=== PATIENT | female | born 1990 | race Caucasian/White ===

== ENCOUNTER 2016-06-26 19:45 | Emergency (ER) | payer BC ==
[~2016-06-26] VITALS: Ht 165.1 cm; Wt 60.7 kg
[2016-06-26 19:46] VITALS: TEMP 36.8; Ht 165.1 cm; Wt 60.7 kg
[2016-06-26] MEDS ORDERED: RABIES IMMUNE GLOBULIN (HUMAN) 150 INTER.UNIT/ML 2 ML VIAL IM. ONE (20:15)
[2016-06-26] MEDS ORDERED: RABIES VACCINE (IMOVAX) HUMAN DIPL CELL 2.5 INTER.UNIT/ML SYR IM. ONE (20:15)
[2016-06-26] MEDS ORDERED: BCPILLS PO (20:22)
--- NOTE | 2016-06-26 20:38 | EMERGENCY ROOM VISIT NOTE ---
History First contact with patient: 19:52 Chief Complaint: RABIES VACCINE Stated Complaint: RABIES SHOT? History of Present Illness The patient is a 26 year old female who presents to the Emergency Room for rabies postexposure prophylaxis. The patient was caring for a raccoon that had been abandoned by its mother. The patient was bottle feeding the animal over the past 3-4 days before it spontaneously. The patient does not recall a distinct puncture wound or laceration from the animal, however she is confident that she was exposed to with saliva and mucous membranes. The patient is otherwise healthy without other complaints. Review of Systems More than 6 systems were reviewed and otherwise negative with the exception of history of present illness. Past Medical/Surgical History medical disease Family History No pertinent family history Social History Smoking Status: Never Smoker Housing Status: lives with family Current/Historical Medications Scheduled Control Pills ( Control Pills), 1 TAB PO DAILY Allergies Coded Allergies: No Known Allergies (Unverified , 06/26/16) Physical Exam Vital Signs Date Time Temp Pulse Resp B/P Pulse Ox O2 Delivery O2 Flow Rate FiO2 06/26/16 19:46 36.8 81 16 123/79 99 Room Air Physical Exam VITALS: Vitals are noted on the nurse's note and reviewed by myself. Vital signs stable. GENERAL: Well-developed, well-nourished, white female, who is in no acute distress and resting comfortably. Patient is cooperative with the examination. HEAD: Normocephalic atraumatic. HEART: Regular rate and rhythm without murmurs gallops or rubs. LUNGS: Clear to auscultation bilaterally without wheezes, rales or rhonchi. No retractions or accessory muscle use. NEURO: Patient was alert and oriented to person place and time. CN II through XII grossly intact. Medical Decision & Procedures ED Course Physical exam and history were performed. Nursing notes and EMR were reviewed. Patient appears to have exposure to a raccoon that has been abandoned by his mother. The baby raccoon itself also , and there is concern this may be from rabies. The patient is without neurologic deficit. She was given rabies IgG and Imovax here in the department. We had a lengthy discussion regarding the timing of further immunizations. She was given the immunization schedule, but may need to do her fourth dose early. This is felt reasonable as the patient is traveling. The patient was otherwise stable for discharge home and invited back to the ER with any new, worsening, or concerning symptoms. The chart was completed utilizing [employer] Speech Voice Recognition Software. Grammatical errors, random word insertions, pronoun errors, and incomplete sentences are an occasional consequence of this system due to software limitations, ambient noise, and hardware issues. Any formal questions or concerns about the content, text, or information contained within the body of this dictation should be directly addressed to the provider for clarification. . Medical Decision Differential diagnosis includes, but is not limited to: Need for postexposure prophylaxis of Rabies Impression Primary Impression: Rabies, need for prophylactic vaccination against Departure Information Dispostion Home / Self-Care Condition GOOD Forms HOME CARE DOCUMENTATION FORM, IMPORTANT VISIT INFORMATION Patient Instructions [facility], Rabies Immune Globulin Human Solution for injection Additional Instructions You were seen and evaluated today on an emergency basis only. This is not a substitute for, or an effort to provide, complete comprehensive medical care. It is not possible to recognize and treat all injuries or illnesses in a single emergency department visit. For this reason it is recommended that you followup with the emergency department as follows for additional vaccinations: Day 3: 06/30/2016 Day 7: 07/03/2016 Day 14: 07/10/2016 You are welcome to return to the emergency department anytime with new, worsening, or concerning symptoms.
[2016-06-26 21:17] VITALS: BP 122/87; PULSE 99; O2SAT 100
== END 2016-06-26 21:18 | disposition home or self-care (01) ==
LOC: C.EDB 19:45 → C.EDD 21:18
DX: Z20.3 Contact with and (suspected) exposure to rabies (principal); Z23 Encounter for immunization

== ENCOUNTER 2016-06-29 11:22 | Emergency (ER) | payer BC ==
[~2016-06-29] VITALS: Ht 162.6 cm; Wt 57.6 kg
[~2016-06-29 11:22] MED LIST: BCPILLS PO
[2016-06-29 11:32] VITALS: BP 120/73; PULSE 82; TEMP 36.7; O2SAT 100; Ht 162.6 cm; Wt 57.6 kg
--- NOTE | 2016-06-29 11:44 | EMERGENCY ROOM VISIT NOTE ---
ED Visit Note First contact with patient: 11:38 Chief Complaint: Rabies Return Visit History of Present Illness: This patient is a 26-year-old female who presents to the Emergency Department this morning for their second Rabies Vaccination Injections. The patient reports that they had no reaction to previous injection. Patient denies the development of any fevers, chills, sweats, or URI symptoms. Medications: Unchanged from previous visit. Allergies: No known allergies. PMH: Unchanged from previous visit. SHx: Patient is a 26-year-old female who lives locally. ROS: All pertinent positive and negative review of systems are appropriately documented in the History of Present Illness. Physical Exam: VITAL SIGNS - Vital signs and Nursing Notes were reviewed. GENERAL -26-year-old female, well-developed, well-nourished, and in no acute distress. NEURO - Patient is A&Ox3 and communicates appropriately with the provider. ED Course: Previous ED visit note was reviewed by myself prior to patient evaluation. Patient reports no reaction to the previous injection(s). Patient received 2.5 international units of Imovax intramuscularly. Patient was observed in the Emergency Department for greater than 20 minutes prior to discharge without signs of reaction. Patient was educated on worrisome symptoms for return visit to the Emergency Department. Patient discharged to home with the intent for follow-up in the Emergency Department as scheduled for the remainder of their injections. Impression: Rabies Prophylaxis Discharge Instructions: You were seen in the Emergency Department today for your Rabies Prophylaxis Injection. You should continue to follow the Discharge Instructions outlined for you in your initial Emergency Department visit. For pain or fever control, you can use the following [id number] medicines (if >12 yo): - Regular strength (325mg/tab) Tylenol (acetaminophen) 2 tabs every 4-6 hours as needed. Do not exceed 12 tablets in a 24 hour period. Avoid taking more than 4 grams (4000 mg) of Tylenol per day. This includes any other sources of acetaminophen you may take on a regular basis. - Regular strength (200 mg/tab) Advil (ibuprofen) 1-2 tabs every 4-6 hours as needed. Do not exceed a dose of 3200 mg per day. Return to the emergency department if your symptoms worsen despite treatment course outlined above. Current/Historical Medications Scheduled Control Pills ( Control Pills), 1 TAB PO DAILY Allergies Coded Allergies: No Known Allergies (Unverified , 06/29/16) Vital Signs Date Time Temp Pulse Resp B/P Pulse Ox O2 Delivery O2 Flow Rate FiO2 06/29/16 11:32 36.7 82 16 120/73 100 Room Air Medications Administered Medications (Trade) Dose Ordered Sig/Nikihl Route Start Time Stop Time Status Last Admin Dose Admin Rabies Vaccine Human Diploid Cell (Imovax Rabies) 2.5 interunit ONCE ONCE IM. 06/29/16 11:45 06/29/16 11:46 DC 06/29/16 11:58 2.5 INTERUNIT Departure Information Impression Primary Impression: Rabies, need for prophylactic vaccination against Dispostion Home / Self-Care Condition GOOD Referrals Pauly Dickey PA-C (PCP) Patient Instructions My [facility] Additional Instructions You were seen in the Emergency Department today for your Rabies Prophylaxis Injection. You should continue to follow the Discharge Instructions outlined for you in your initial Emergency Department visit. For pain or fever control, you can use the following codz-php-mbmbosf medicines (if >12 yo): - Regular strength (325mg/tab) Tylenol (acetaminophen) 2 tabs every 4-6 hours as needed. Do not exceed 12 tablets in a 24 hour period. Avoid taking more than 4 grams (4000 mg) of Tylenol per day. This includes any other sources of acetaminophen you may take on a regular basis. - Regular strength (200 mg/tab) Advil (ibuprofen) 1-2 tabs every 4-6 hours as needed. Do not exceed a dose of 3200 mg per day. Return to the emergency department if your symptoms worsen despite treatment course outlined above.
[2016-06-29] MEDS ORDERED: RABIES VACCINE (IMOVAX) HUMAN DIPL CELL 2.5 INTER.UNIT/ML SYR IM. ONE (11:45)
== END 2016-06-29 12:05 | disposition home or self-care (01) ==
LOC: C.EDB 11:22 → C.EDC 12:05
DX: Z20.3 Contact with and (suspected) exposure to rabies (principal); Z23 Encounter for immunization

== ENCOUNTER 2016-07-04 13:21 | Emergency (ER) | payer BC ==
[~2016-07-04] VITALS: Ht 165.1 cm; Wt 59.4 kg
[2016-07-04 13:26] VITALS: TEMP 36.8; Ht 165.1 cm; Wt 59.4 kg
[2016-07-04] MEDS ORDERED: PRLSR20 PO (13:32)
[2016-07-04] MEDS ORDERED: RABIES VACCINE (IMOVAX) HUMAN DIPL CELL 2.5 INTER.UNIT/ML SYR IM. ONE (14:00)
[2016-07-04 14:17] VITALS: BP 113/73; PULSE 88; O2SAT 98
--- NOTE | 2016-07-05 22:03 | EMERGENCY ROOM VISIT NOTE ---
ED Visit Note First contact with patient: 13:29 Chief Complaint: Rabies vaccination. History of Present Illness: Ms. Xie is a 26-year-old white female who ambulates into the ED requesting the third injection of her rabies vaccination. Patient reports she has had no reactions to her vaccinations today and she is feeling well. Review of Systems: As noted above in history of present illness. Physical Examination: Vital Signs: Date Time Temp Pulse Resp B/P Pulse Ox O2 Delivery O2 Flow Rate FiO2 07/04/16 14:17 88 20 113/73 98 07/04/16 13:26 36.8 88 20 113/73 98 Room Air GENERAL: 26-year-old female in no acute distress, nontoxic-appearing, afebrile and hemodynamically stable. NEUROLOGICAL: Awake, alert and oriented to person, place and time. Answering questions appropriately and following commands. Normal gait. SKIN: Warm, dry and pink. ED Course: Patient is assessed as noted above. Patient was given 2.5 inter units of rabies vaccination IM. Patient was educated on tonight's findings and instructed on her treatment plan ; she verbalizes understanding and agreement with this plan. Clinical Impression: Rabies immunization vaccination. Disposition: Patient discharged home in stable condition; prior to departure she was reassessed and subjectively reported she was pain and symptom-free. Plan: Patient was encouraged to continue her current immunization schedule as previously defined. Patient was encouraged to follow her previous instructions for care and watch for possible side effects. Patient was encouraged return to ED for any side effects or any new/concerning symptoms or her fourth and final injection.
== END 2016-07-04 14:00 | disposition home or self-care (01) ==
LOC: C.EDB 13:22 → C.EDD 14:00
DX: Z20.3 Contact with and (suspected) exposure to rabies (principal); Z23 Encounter for immunization

== ENCOUNTER → 2016-12-25 | Outpatient (CLI) | payer BC ==
[~2016-12-25] MED LIST changes: +PRLSR20 PO
== END | disposition home or self-care (01) ==
LOC: C.PAPS 13:52
PROVIDERS: ATTEND Physician Assistant
DX: Z01.419 Encounter for gynecological examination (general) (routine) without abnormal findings (principal)